=== PATIENT | female | born 1995 | race Caucasian/White ===

== ENCOUNTER 2017-03-09 13:47 | Emergency (ER) | payer SELFPAY ==
[~2017-03-09] VITALS: Ht 165.1 cm; Wt 99.9 kg
[2017-03-09 13:55] VITALS: BP 151/83; PULSE 111; TEMP 36.6; O2SAT 100; Ht 165.1 cm; Wt 99.9 kg
--- NOTE | 2017-03-09 16:56 | EMERGENCY ROOM VISIT NOTE ---
History First contact with patient: 14:00 Chief Complaint: TEST REQUEST Stated Complaint: POSSIBLY History of Present Illness The patient is a 22 year old female who presents to the Emergency Room with complaints of possible . Patient recently discontinued her control and is actively trying to become . She has had irregular menses since stopping control, and states her last period was 5 weeks ago. She did take a home test which was negative. She does not have other complaints. Review of Systems More than 6 systems were reviewed and otherwise negative with the exception of history of present illness. Past Medical/Surgical History No chronic medical disease Family History No pertinent family history Social History Smoking Status: Never Smoker Housing Status: lives with significant other Current/Historical Medications No Active Prescriptions or Reported Meds Physical Exam Vital Signs Date Time Temp Pulse Resp B/P (MAP) Pulse Ox O2 Delivery O2 Flow Rate FiO2 03/09/17 13:55 36.6 111 18 151/83 100 Room Air Pain Rating (0-10): 0 Physical Exam VITALS: Vitals are noted on the nurse's note and reviewed by myself. Vital signs stable. GENERAL: Well-developed, well-nourished, white female, who is in no acute distress and resting comfortably. Patient is cooperative with the examination. HEART: Regular rate and rhythm without murmurs gallops or rubs. LUNGS: Clear to auscultation bilaterally without wheezes, rales or rhonchi. No retractions or accessory muscle use. ABDOMEN: Positive normal bowel sounds x 4. Soft, nontender, without masses or organomegaly. No guarding or rebound tenderness. Medical Decision & Procedures Laboratory Results Test 03/09/17 14:05 Urine Test NEG (NEG) ED Course Physical exam and history were performed. Nursing notes, EMR, and Medication List were personally reviewed. Patient appears to have concern for as her last menstrual period was 5 weeks ago. Urine was collected and urine screen was negative. I recommend the patient follow with INVOICE CONTROL CLERK for further needs regarding . She was certainly invited back to the ER with any new, worsening, or concerning symptoms. The chart was completed utilizing [employer] Voice Recognition Software. Grammatical errors, random word insertions, pronoun errors, and incomplete sentences are an occasional consequence of this system due to software limitations, ambient noise, and hardware issues. Any formal questions or concerns about the content, text, or information contained within the body of this dictation should be directly addressed to the provider for clarification. . Medical Decision Differential diagnosis includes, but is not limited to: Irregular menses, , and others Impression Primary Impression: test negative Departure Information Dispostion Home / Self-Care Condition GOOD Prescriptions No Active Prescriptions or Reported Meds Forms HOME CARE DOCUMENTATION FORM, IMPORTANT VISIT INFORMATION Patient Instructions My [facility] Additional Instructions You were seen and evaluated today on an emergency basis only. This is not a substitute for, or an effort to provide, complete comprehensive medical care. It is not possible to recognize and treat all injuries or illnesses in a single emergency department visit. For this reason it is recommended that you followup with your INVOICE CONTROL CLERK if you continue to have irregular periods. They may also be able to help you with fertility if this is your goal. You are welcome to return to the emergency department anytime with new, worsening, or concerning symptoms.
== END 2017-03-09 14:20 | disposition home or self-care (01) ==
LOC: C.EDB 13:50 → C.EDD 14:20
DX: Z32.02 Encounter for pregnancy test, result negative (principal)

== ENCOUNTER → 2017-05-25 | Outpatient (CLI) | payer OTHER ==
--- NOTE | 2017-05-25 16:16 | DIAGNOSTIC IMAGING REPORT ---
L-SPINE MIN 4 VIEWS ROUTINE, SI JOINTS 3 OR MORE VIEWS HISTORY: 22 years-old Female RT HIP PAIN acute right-sided hip and lower back pain COMPARISON: None available TECHNIQUE: 5 views of the lumbar spine with 3 views of the SI joints FINDINGS: LUMBAR SPINE: There are 6 nonrib-bearing lumbar-type vertebral segments. No evidence of spondylolysis or spondylolisthesis. No acute fracture, subluxation or significant degenerative changes. SI JOINTS: No acute fracture, subluxation or significant degenerative changes or erosions to suggest sacroiliitis. IMPRESSION: No acute bony abnormality identified involving the lumbar spine or SI joints. The above report was generated using voice recognition software. It may contain grammatical, syntax or spelling errors. Electronically signed by: Basim Zaragoza M.D. 05/25/2017 4:15 PM Dictated Date/Time: 05/25/2017 4:13 PM
== END | disposition home or self-care (01) ==
LOC: C.RAD1850 15:14
PROVIDERS: ATTEND Physician Assistant
DX: M25.551 Pain in right hip (principal)

== ENCOUNTER 2017-06-22 16:00 | Emergency (ER) | payer OTHER ==
[~2017-06-22] VITALS: Ht 172.7 cm; Wt 100.0 kg
[2017-06-22 16:02] VITALS: TEMP 36.4; Ht 172.7 cm; Wt 100.0 kg
[2017-06-22] MEDS ORDERED: MoRPHine SULFATE 10 MG/ML CARP/VIAL IV STA (16:12)
[2017-06-22] MEDS ORDERED: KETOROLAC TROMETHAMINE 30 MG/ML VIAL IV STA (16:12)
[2017-06-22] MEDS ORDERED: ONDANSETRON INJ 2 MG/ML 2 ML VIAL IV STA (16:12)
[2017-06-22] MEDS ORDERED: TAMSULOSIN HCL 0.4 MG CAP PO ONE (16:15)
[2017-06-22 16:26] LABS: URINE APPEARANCE CLOUDY (CLEAR); URINE BILIRUBIN NEG (NEG); URINE COLOR YELLOW; URINE EPITHELIAL CELL AUTO >30 /lpf (0-5); URINE NITRITE NEG (NEG); UROBILINOGEN NEG (NEG); ZZUR CULT IF INDIC CLEAN CATCH YES
[2017-06-22 16:32] LABS: MANUAL MICROSCOPIC REQUIRED? NO; REVIEW REQ? NO
[2017-06-22 16:36] LABS: BASO % 0.1 %; BASO ABS # 0.01 K/uL (0-0.2); COMPLETE YES; EOS % 0.5 %; HEMATOCRIT 38.2 % (37-47); IG% 0.2 %; LYMPH % 14.7 %; LYMPH ABS # 1.88 K/uL (1.2-3.4); MEAN CELL VOLUME 87.2 fL (80-100); MEAN CORPUSCULAR HEMOGLOBIN 29.7 pg (25-34); MEAN PLATELET VOLUME 8.6 fL (7.4-10.4); NEUT % 78.5 %; PLATELET COUNT 320 K/uL (130-400); RED BLOOD COUNT 4.38 M/uL (4.2-5.4); WHITE BLOOD COUNT 12.75 K/uL (4.8-10.8)
[2017-06-22] MEDS ORDERED: DICL50TA3 PO (16:47)
[2017-06-22] MEDS ORDERED: METH4PAK PO (16:47)
[2017-06-22 16:53] LABS: BUN/CREATININE RATIO 12.8 (10-20); CALCIUM 8.9 mg/dl (8.5-10.1); CREATININE 0.89 mg/dl (0.60-1.20); POTASSIUM 3.5 mmol/L (3.5-5.1)
[2017-06-22] MEDS ORDERED: NITROFURANTOIN MONOHYDRATE 100 MG CAP PO STA (16:53)
--- NOTE | 2017-06-22 17:00 | DIAGNOSTIC IMAGING REPORT ---
ABDOMEN AND PELVIS CT WITHOUT CONTRAST CT DOSE: 1123.19 mGycm HISTORY: left flank pain TECHNIQUE: Multiaxial CT images of the abdomen and pelvis were performed without the use of intravenous and oral contrast according to the standard department stone protocol. A dose lowering technique was utilized adhering to the principles of ALARA. COMPARISON STUDY: None. FINDINGS: There is a 7 mm peripheral nodule seen within the lingula on image 15. There is a 3 mm calcification within the left deep pelvis which appears to represent a distal left ureteral stone. This is best seen on image 173. There is associated mild left hydroureteronephrosis. No additional renal calculi identified. No right-sided hydronephrosis. The unenhanced liver, spleen, adrenal glands, and pancreas are unremarkable. Normal gallbladder. No retroperitoneal lymphadenopathy. Bladder is decompressed and not well visualized. The ovaries are symmetric in size. No evidence for bowel obstruction. Visualized appendix is unremarkable. Mild soft tissue/fat stranding seen within the deep pelvis surrounding the uterus, ovaries, and distal sigmoid colon. There are few subcentimeter soft tissue nodules within the mesentery within the deep pelvis best seen on images 134 through 148. The largest nodule measures 8 mm. No pelvic lymphadenopathy. IMPRESSION: 1. A 3 mm calcification within the left deep pelvis consistent with a distal left ureteral stone. There is associated mild left hydroureteronephrosis. 2. Mild soft tissue/fat stranding seen within the deep pelvis surrounding the uterus, ovaries, distal sigmoid colon. No associated bowel wall thickening. There are also a few subcentimeter soft tissue nodules within the mesentery of the deep pelvis as described above. These findings are nonspecific but could represent endometriosis given the patient's age. An infectious/inflammatory process or occult gynecologic malignancy could also result in a similar appearance. Therefore, follow-up nonemergent gynecologic consultation is recommended. In addition, a 1 month abdomen and pelvis CT follow is recommended to ensure stability/resolution. 3. An indeterminate 7 mm nodule within the lingula. This also requires one month CT follow-up to ensure stability/resolution. This can be reassessed on the follow-up abdomen and pelvis CT. Electronically signed by: John Montague M.D. 06/22/2017 4:59 PM Dictated Date/Time: 06/22/2017 4:47 PM
[2017-06-22] MEDS ORDERED: TAMS0.4C38 PO (17:15)
[2017-06-22] MEDS ORDERED: NITR-5 PO (17:15)
[2017-06-22] MEDS ORDERED: ONDA4TAB10 SL (17:15)
[2017-06-22] MEDS ORDERED: OXYC1TAB3 PO (17:15)
--- NOTE | 2017-06-22 17:18 | EMERGENCY ROOM VISIT NOTE ---
History First contact with patient: 16:08 Chief Complaint: FLANK PAIN Stated Complaint: LOTS OF PAIN LT SIDE OF BACK AND VOMITING History of Present Illness The patient is a 22 year old female who presents to the Emergency Room with complaints of left flank pain which started this morning. The patient states it starts in the back and radiates around to her abdomen. The patient admits to associated nausea and vomiting but denies any fever. The patient states she started with some urinary urgency last night but denies any hematuria, dysuria or frequency. The patient denies . The patient admits that she had a kidney stone one year ago. She didn't need noted that she has had it. Review of Systems 10 system review was performed and was negative unless stated otherwise history of present illness. Past Medical/Surgical History Kidney stone Social History Smoking Status: Never Smoker Alcohol Use: none Drug Use: none Marital Status: Housing Status: lives with family Current/Historical Medications Scheduled Diclofenac (Voltaren), 50 MG PO BID Methylprednisolone (Medrol Dosepak), 1 PKT PO UD Physical Exam Vital Signs Date Time Temp Pulse Resp B/P (MAP) Pulse Ox O2 Delivery O2 Flow Rate FiO2 06/22/17 16:50 85 16 124/72 99 Room Air 06/22/17 16:02 36.4 121 16 154/93 100 Room Air Physical Exam GENERAL: 22-year-old white female appears uncomfortable secondary to flank pain. MENTAL Status: Alert and oriented 3. MOUTH: Mucosa is moist NECK: Supple, no lymphadenopathy noted. No carotid bruits noted. LUNGS: Clear auscultation without wheezes rales or rhonchi. CARDIAC: Regular rate and rhythm without murmur. Pulses is full and equal throughout. BACK: No CVA tenderness noted. ABDOMEN: Positive bowel sounds all 4 quadrants. Soft, tenderness to palpation in the left flank area otherwise nontender to palpation without organomegaly or masses. EXTREMITIES: No cyanosis or edema noted. Medical Decision & Procedures ER Provider Diagnostic Interpretation: ABDOMEN AND PELVIS CT WITHOUT CONTRAST CT DOSE: 1123.19 mGycm HISTORY: left flank pain TECHNIQUE: Multiaxial CT images of the abdomen and pelvis were performed without the use of intravenous and oral contrast according to the standard department stone protocol. A dose lowering technique was utilized adhering to the principles of ALA. COMPARISON STUDY: None. FINDINGS: There is a 7 mm peripheral nodule seen within the lingula on image 15. There is a 3 mm calcification within the left deep pelvis which appears to represent a distal left ureteral stone. This is best seen on image 173. There is associated mild left hydroureteronephrosis. No additional renal calculi identified. No right-sided hydronephrosis. The unenhanced liver, spleen, adrenal glands, and pancreas are unremarkable. Normal gallbladder. No retroperitoneal lymphadenopathy. Bladder is decompressed and not well visualized. The ovaries are symmetric in size. No evidence for bowel obstruction. Visualized appendix is unremarkable. Mild soft tissue/fat stranding seen within the deep pelvis surrounding the uterus, ovaries, and distal sigmoid colon. There are few subcentimeter soft tissue nodules within the mesentery within the deep pelvis best seen on images 134 through 148. The largest nodule measures 8 mm. No pelvic lymphadenopathy. IMPRESSION: 1. A 3 mm calcification within the left deep pelvis consistent with a distal left ureteral stone. There is associated mild left hydroureteronephrosis. 2. Mild soft tissue/fat stranding seen within the deep pelvis surrounding the uterus, ovaries, distal sigmoid colon. No associated bowel wall thickening. There are also a few subcentimeter soft tissue nodules within the mesentery of the deep pelvis as described above. These findings are nonspecific but could represent endometriosis given the patient's age. An infectious/inflammatory process or occult gynecologic malignancy could also result in a similar appearance. Therefore, follow-up nonemergent gynecologic consultation is recommended. In addition, a 1 month abdomen and pelvis CT follow is recommended to ensure stability/resolution. 3. An indeterminate 7 mm nodule within the lingula. This also requires one month CT follow-up to ensure stability/resolution. This can be reassessed on the follow-up abdomen and pelvis CT. Electronically signed by: John Montague M.D. 06/22/2017 4:59 PM Dictated Date/Time: 06/22/2017 4:47 PM Laboratory Results 06/22/17 16:18 Red Blood Count 4.38, Mean Corpuscular Volume 87.2, Mean Corpuscular Hemoglobin 29.7, Mean Corpuscular Hemoglobin Concent 34.0, Mean Platelet Volume 8.6, Neutrophils (%) (Auto) 78.5, Lymphocytes (%) (Auto) 14.7, Monocytes (%) (Auto) 6.0, Eosinophils (%) (Auto) 0.5, Basophils (%) (Auto) 0.1, Neutrophils # (Auto) 10.00, Lymphocytes # (Auto) 1.88, Monocytes # (Auto) 0.76, Eosinophils # (Auto) 0.07, Basophils # (Auto) 0.01 06/22/17 16:18 Test 06/22/17 16:10 06/22/17 16:18 Urine Color YELLOW Urine Appearance CLOUDY (CLEAR) Urine pH 5.0 (4.5-7.5) Urine Specific [place] 1.030 (1.000-1.030) Urine Protein NEG (NEG) Urine Glucose (UA) NEG (NEG) Urine Ketones TRACE (NEG) Urine Occult Blood 1+ (NEG) Urine Nitrite NEG (NEG) Urine Bilirubin NEG (NEG) Urine Urobilinogen NEG (NEG) Urine Leukocyte Esterase TRACE (NEG) Urine WBC (Auto) 10-30 /hpf (0-5) Urine RBC (Auto) 5-10 /hpf (0-4) Urine Hyaline Casts (Auto) 10-30 /lpf (0-5) Urine Epithelial Cells (Auto) >30 /lpf (0-5) Urine Bacteria (Auto) 1+ (NEG) White Blood Count 12.75 K/uL (4.8-10.8) Red Blood Count 4.38 M/uL (4.2-5.4) Hemoglobin 13.0 g/dL (12.0-16.0) Hematocrit 38.2 % (37-47) Mean Corpuscular Volume 87.2 fL (80-100) Mean Corpuscular Hemoglobin 29.7 pg (25-34) Mean Corpuscular Hemoglobin Concent 34.0 g/dl (32-36) Platelet Count 320 K/uL (130-400) Mean Platelet Volume 8.6 fL (7.4-10.4) Neutrophils (%) (Auto) 78.5 % Lymphocytes (%) (Auto) 14.7 % Monocytes (%) (Auto) 6.0 % Eosinophils (%) (Auto) 0.5 % Basophils (%) (Auto) 0.1 % Neutrophils # (Auto) 10.00 K/uL (1.4-6.5) Lymphocytes # (Auto) 1.88 K/uL (1.2-3.4) Monocytes # (Auto) 0.76 K/uL (0.11-0.59) Eosinophils # (Auto) 0.07 K/uL (0-0.5) Basophils # (Auto) 0.01 K/uL (0-0.2) RDW Standard Deviation 42.0 fL (36.4-46.3) RDW Coefficient of Variation 13.1 % (11.5-14.5) Immature Granulocyte % (Auto) 0.2 % Immature Granulocyte # (Auto) 0.03 K/uL (0.00-0.02) Anion Gap 6.0 mmol/L (3-11) Est Creatinine Clear Calc Drug Dose 124.7 ml/min Estimated GFR () 108.1 Estimated GFR (Non- 93.3 BUN/Creatinine Ratio 12.8 (10-20) Calcium Level 8.9 mg/dl (8.5-10.1) Total Bilirubin 0.3 mg/dl (0.2-1) Direct Bilirubin 0.1 mg/dl (0-0.2) Aspartate Amino Transf (AST/SGOT) 11 U/L (15-37) Alanine Aminotransferase (ALT/SGPT) 18 U/L (12-78) Alkaline Phosphatase 98 U/L (45-117) Total Protein 8.0 gm/dl (6.4-8.2) Albumin 4.1 gm/dl (3.4-5.0) Lipase 86 U/L (73-393) Medications Administered Medications (Trade) Dose Ordered Sig/Hiren Route Start Time Stop Time Status Last Admin Dose Admin Ketorolac Tromethamine (Toradol Inj) 30 mg NOW STAT IV 06/22/17 16:12 06/22/17 16:14 DC 06/22/17 16:18 30 MG Ondansetron HCl (Zofran Inj) 4 mg NOW STAT IV 06/22/17 16:12 06/22/17 16:14 DC 06/22/17 16:18 4 MG Morphine Sulfate (MoRPHine SULFATE INJ) 6 mg NOW STAT IV 06/22/17 16:12 06/22/17 16:14 DC 06/22/17 16:19 6 MG Tamsulosin HCl (Flomax Cap) 0.4 mg NOW ONCE PO 06/22/17 16:15 06/22/17 16:16 DC 06/22/17 16:18 0.4 MG Nitrofurantoin Macrocrystals (Macrobid Cap) 100 mg NOW STAT PO 06/22/17 16:53 06/22/17 16:54 DC 06/22/17 17:01 100 MG ED Course The patient was evaluated. The patient's EMR medication list were reviewed. IV access was obtained. CBC and differential, renal profile, LFTs and lipase levels were ordered. Urinalysis was ordered. Urine dip for was ordered. The patient was given Zofran 4 mg IV, Toradol 30 mg IV, morphine 6 mg IV and Flomax 0.[address] stone study was ordered interpreted by the radiologist as above with a 3 mm calculus in the left distal ureter with mild hydro-also incidental findings of a pulmonary nodule as well as possible endometriosis. Labs are reviewed. White count was elevated 12,000. Metabolic profile was normal. Urinalysis revealed positive blood, positive leukocytes and positive bacteria therefore she was given Macrobid 100 mg by mouth while in the ER. The patient was informed of all the abnormal findings noted on her CT and was discharged home in stable condition.. Medical Decision Differential diagnoses include reflux, gastritis, gastroenteritis, pancreatitis , cholelithiasis, cholecystitis, appendicitis, mesenteric ischemia, pyelonephritis, urinary tract infection, renal colic, diverticulitis, shingles, bowel obstruction, intussusception, hernia, ovarian torsion, ruptured ovarian cyst, ectopic , . [place] Drug Monitoring Program Search Results: patient reviewed within database Medication Reconcilliation Current Medication List: was personally reviewed by tx Blood Pressure Screening Patient's blood pressure: Normal blood pressure Impression Primary Impression: Ureteral calculus, left Additional Impressions: Urinary tract infection Pulmonary nodule Endometriosis Departure Information Dispostion Home / Self-Care Condition GOOD Prescriptions Oxycodone Immediate Rel Tab (ROXICODONE IR) 5 Mg Tab 1-2 TAB PO Q4H Y for Pain, #20 TAB Prov: Noemi Chávez PA-C 06/22/17 Ondasetron Odt (ZOFRAN ODT) 4 Mg Tab 4 MG SL Q6H for Nausea, #14 TAB Prov: Noemi Chávez PA-C 06/22/17 Tamsulosin Hcl (FLOMAX) 0.4 Mg Cap 0.4 MG PO DAILY for 7 Days, #7 CAP Prov: Noemi Chávez PA-C 06/22/17 Nitrofurantoin Monohyd Macrocr (Macrobid) 100 Mg Cap 100 MG PO BID for 7 Days, #14 CAP Prov: Noemi Chávez PA-C 06/22/17 Referrals No Doctor, Assigned (PCP) Davis Velasquez M.D. Forms HOME CARE DOCUMENTATION FORM, IMPORTANT VISIT INFORMATION Patient Instructions ED UTI Cystitis Female, Kidney Stones - [facility], [facility] Additional Instructions Push fluids. Strain all urine. Take Macrobid as directed. Ibuprofen 600 mg every 6 hours with food for pain. Take OxyIR as needed for more severe pain. Do not drive while taking the OxyIR. Take Zofran as needed for nausea. Appointment with gynecology as soon as possible for evaluation of possible endometriosis. Follow-up with your family doctor within the next month concerning the pulmonary nodule. If you experience any severe abdominal pain, uncontrolled nausea vomiting, high fevers return to the ER immediately. If you do not pass the stone in 3-[address] Velasquez. Problem Qualifiers Additional Impressions: Urinary tract infection Urinary tract infection type: acute cystitis Hematuria presence: with hematuria Qualified Codes: N30.01 - Acute cystitis with hematuria
[2017-06-22 17:33] VITALS: BP 130/90; PULSE 80; O2SAT 98
== END 2017-06-22 17:44 | disposition home or self-care (01) ==
LOC: C.EDB 16:01 → C.EDA 17:44
DX: N13.2 Hydronephrosis with renal and ureteral calculous obstruction (principal); N39.0 Urinary tract infection, site not specified; R91.1 Solitary pulmonary nodule; N80.9 Endometriosis, unspecified

== ENCOUNTER 2017-06-29 09:51 | Emergency (ER) | payer OTHER ==
[~2017-06-29] VITALS: Ht 165.1 cm; Wt 98.9 kg
[~2017-06-29 09:51] MED LIST: DICL50TA3 PO; METH4PAK PO; NITR-5 PO; ONDA4TAB10 SL; OXYC1TAB3 PO; TAMS0.4C38 PO
[2017-06-29 09:56] VITALS: TEMP 36.5; Ht 165.1 cm; Wt 98.9 kg
--- NOTE | 2017-06-29 10:36 | EMERGENCY ROOM VISIT NOTE ---
History Report prepared by Yoselin: Daly Jay Under the Supervision of: Dr. Jomar Nunez M.D. First contact with patient: 10:00 Chief Complaint: KIDNEY STONE Stated Complaint: TACHY,REFERRED,HERE W STONE LAST WEEK History of Present Illness The patient is a 22 year old white female with a past medical history of kidney stones, endometriosis, migraines who presents to the ED with a cc of persistent headaches beginning several days ago. Positive dizzy, nausea, vomiting, tachycardia, photophobia. Negative flank pain. The patient reports that she was recently seen in the emergency department for a kidney stone. She states that she saw her orthopedic doctor today and told him the symptoms she was experiencing and he referred her to the emergency department for further work up. The patient states that she has a history of migraines, but stats that this feels different, noting that her typical migraine is located in her occipital part of her head, where today it is localized to her frontal area. She describes her discomfort as a sharp pain. The patient denies any recent travel. She denies any tobacco or alcohol use. Source of History: patient Onset: sevreal days ago Position: head Quality: ache, sharp Timing: other (persistent) Associated Symptoms: + nausea, + vomiting Note: Associated Symptoms: dizzy, tachycardia, photophobia Review of Systems See HPI for pertinent positives and negatives. A total of ten systems were reviewed and were otherwise negative. Past Medical & Surgical Medical Problems: (1) Kidney stone Family History Cancer Diabetes mellitus Heart disease Hypertension Kidney disease Kidney stones Social History Smoking Status: Never Smoker Smokeless Tobacco Use: No Alcohol Use: none Drug Use: none Marital Status: Housing Status: lives with family Occupation Status: employed Current/Historical Medications Scheduled Ciprofloxacin Hcl (Cipro), 500 MG PO BID Diclofenac (Voltaren), 50 MG PO BID Methylprednisolone (Medrol Dosepak), 1 PKT PO UD Nitrofurantoin Monohyd Macrocr (Macrobid), 100 MG PO BID Ondasetron Odt (Zofran Odt), 4 MG SL Q6H Ondasetron Odt (Zofran Odt), 4 MG SL Q6H Allergies Coded Allergies: No Known Allergies (Unverified , 03/09/17) Physical Exam Vital Signs Date Time Temp Pulse Resp B/P (MAP) Pulse Ox O2 Delivery O2 Flow Rate FiO2 06/29/17 11:54 89 16 124/86 99 Room Air 06/29/17 09:56 36.5 122 16 128/88 98 Room Air Physical Exam GENERAL: Awake, alert, well-appearing, NAD HENT: Normocephalic, atraumatic. EYES: Normal conjunctiva. Sclera non-icteric. NECK: Supple. No nuchal rigidity. FROM. RESPIRATORY: CTAB, no rhonchi, wheezing, crackles CARDIAC: RRR, no MRG ABDOMEN: Soft, Obese, NTND, BS+, no CVA tenderness MSK: No chest wall TTP, no LE edema NEURO: CN 2-12 intact, 5/5 upper and lower extremity strength, no dysmetria, no drift, good finger to nose, no sensory deficits. SKIN: No rash or jaundice noted. Medical Decision & Procedures Laboratory Results 06/29/17 10:55 Red Blood Count 4.77, Mean Corpuscular Volume 87.0, Mean Corpuscular Hemoglobin 30.2, Mean Corpuscular Hemoglobin Concent 34.7, Mean Platelet Volume 8.8, Neutrophils (%) (Auto) 71.6, Lymphocytes (%) (Auto) 20.3, Monocytes (%) (Auto) 6.9, Eosinophils (%) (Auto) 0.6, Basophils (%) (Auto) 0.3, Neutrophils # (Auto) 8.48, Lymphocytes # (Auto) 2.41, Monocytes # (Auto) 0.82, Eosinophils # (Auto) 0.07, Basophils # (Auto) 0.04 06/29/17 10:55 Test 06/29/17 10:55 White Blood Count 11.85 K/uL (4.8-10.8) Red Blood Count 4.77 M/uL (4.2-5.4) Hemoglobin 14.4 g/dL (12.0-16.0) Hematocrit 41.5 % (37-47) Mean Corpuscular Volume 87.0 fL (80-100) Mean Corpuscular Hemoglobin 30.2 pg (25-34) Mean Corpuscular Hemoglobin Concent 34.7 g/dl (32-36) Platelet Count 346 K/uL (130-400) Mean Platelet Volume 8.8 fL (7.4-10.4) Neutrophils (%) (Auto) 71.6 % Lymphocytes (%) (Auto) 20.3 % Monocytes (%) (Auto) 6.9 % Eosinophils (%) (Auto) 0.6 % Basophils (%) (Auto) 0.3 % Neutrophils # (Auto) 8.48 K/uL (1.4-6.5) Lymphocytes # (Auto) 2.41 K/uL (1.2-3.4) Monocytes # (Auto) 0.82 K/uL (0.11-0.59) Eosinophils # (Auto) 0.07 K/uL (0-0.5) Basophils # (Auto) 0.04 K/uL (0-0.2) RDW Standard Deviation 41.9 fL (36.4-46.3) RDW Coefficient of Variation 13.0 % (11.5-14.5) Immature Granulocyte % (Auto) 0.3 % Immature Granulocyte # (Auto) 0.03 K/uL (0.00-0.02) Urine Color YELLOW Urine Appearance CLEAR (CLEAR) Urine pH 7.5 (4.5-7.5) Urine Specific [place] 1.014 (1.000-1.030) Urine Protein NEG (NEG) Urine Glucose (UA) NEG (NEG) Urine Ketones NEG (NEG) Urine Occult Blood NEG (NEG) Urine Nitrite NEG (NEG) Urine Bilirubin NEG (NEG) Urine Urobilinogen NEG (NEG) Urine Leukocyte Esterase TRACE (NEG) Urine WBC (Auto) 10-30 /hpf (0-5) Urine RBC (Auto) 5-10 /hpf (0-4) Urine Hyaline Casts (Auto) 1-5 /lpf (0-5) Urine Epithelial Cells (Auto) >30 /lpf (0-5) Urine Bacteria (Auto) 1+ (NEG) Urine Test NEG (NEG) Anion Gap 5.0 mmol/L (3-11) Est Creatinine Clear Calc Drug Dose 135.7 ml/min Estimated GFR () 128.8 Estimated GFR (Non- 111.1 BUN/Creatinine Ratio 9.9 (10-20) Calcium Level 9.2 mg/dl (8.5-10.1) Total Bilirubin 0.5 mg/dl (0.2-1) Direct Bilirubin 0.1 mg/dl (0-0.2) Aspartate Amino Transf (AST/SGOT) 8 U/L (15-37) Alanine Aminotransferase (ALT/SGPT) 16 U/L (12-78) Alkaline Phosphatase 98 U/L (45-117) Total Protein 8.4 gm/dl (6.4-8.2) Albumin 4.1 gm/dl (3.4-5.0) Lipase 91 U/L (73-393) Laboratory results reviewed by me Medications Administered Medications (Trade) Dose Ordered Sig/Hiren Route Start Time Stop Time Status Last Admin Dose Admin Prochlorperazine Edisylate (Compazine Inj) 10 mg NOW STAT IV 06/29/17 10:46 06/29/17 10:48 DC 06/29/17 11:10 10 MG Ketorolac Tromethamine (Toradol Inj) 30 mg NOW STAT IV 06/29/17 10:46 06/29/17 10:48 DC 06/29/17 11:09 30 MG Acetaminophen (Tylenol Tab) 1,000 mg NOW STAT PO 06/29/17 10:46 06/29/17 10:48 DC 06/29/17 11:08 1,000 MG Diphenhydramine HCl (Benadryl Inj) 50 mg NOW STAT IV 06/29/17 10:46 06/29/17 10:48 DC 06/29/17 11:09 50 MG Ceftriaxone Sodium (Rocephin Inj) 1 gm NOW STAT IV 06/29/17 12:05 06/29/17 12:14 DC 06/29/17 12:27 1 GM ECG Indication: tachycardia Rate (beats per minute): 97 Rhythm: normal sinus Findings: other (normal intervals, normal axis, no STS or TWI) ED Course 1028: The patient was evaluated in room C3. A complete history and physical exam was performed. 1208: I reevaluated the patient and she is resting comfortably. I discussed the test results with her and I discussed the treatment plan. She verbalized complete understanding and agreement. She is ready to go home. Medical Decision Differential diagnosis: Etiologies such as migraine headache, meningitis, sinusitis, CO exposure, ICH, SAH, infection, tumor, headache, sinus thrombosis, arterial dissection, as well as others were entertained. The patient is a 22 year old white female with a past medical history of kidney stones, endometriosis, migraines who presents to the ED with a cc of persistent headaches beginning several days ago. Patient was seen and evaluated at the bedside. Patient did complain of some mild headache that was frontal and radiated to the back. Patient denied any trauma does not take any blood thinning medications. Patient has no vision changes. Patient did also put his mild nausea. Patient was recently seen and diagnosed with a kidney stone was given antibiotics for UTI as well. On exam patient had a normal neurologic exam and no signs of meningismus. Patient was afebrile and the patient was mildly tachycardic. Patient not complaining shortness breath or chest pains. Patient did have blood work obtained along with a urinalysis, the urine present test. She was given symptomatically treatment. Given the patient did have some mild nausea and a urine that was still concerning for infection the patient was treated with Rocephin. She was given home prescriptions of Cipro. Patient's headache and nausea had resolved. Patient was able tolerate by mouth. Patient had a white blood cell count of 11,000. Patient had normal kidney function. Patient was told to eat a bland diet and liberal fluid hydration to continue take her antibiotics other with a yogurt or probiotic and that she should at the very least take it with food. Patient was deemed suitable for outpatient follow-up and treatment.Patient was given strict follow-up, discharge, and return precautions. All questions were answered. Patient was deemed suitable for outpatient follow-up at this time. Patient agreed with the plan of care and was safely discharged home. Medication Reconcilliation Current Medication List: was personally reviewed by me Impression Primary Impression: UTI (urinary tract infection) Additional Impressions: Headache Nausea Scribe Attestation The scribe's documentation has been prepared under my direction and personally reviewed by me in its entirety. I confirm that the note above accurately reflects all work, treatment, procedures, and medical decision making performed by me. Departure Information Dispostion Home / Self-Care Prescriptions Ciprofloxacin Hcl (CIPRO) 500 Mg Tab 500 MG PO BID for 7 Days, #14 TAB Prov: Jomar Nunez M.D. 06/29/17 Ondasetron Odt (ZOFRAN ODT) 4 Mg Tab 4 MG SL Q6H for Nausea, #6 TAB Prov: Jomar Nunez M.D. 06/29/17 Referrals Sophia Sorto PA-C (PCP) Forms HOME CARE DOCUMENTATION FORM, IMPORTANT VISIT INFORMATION Patient Instructions ED Diet [place], ED UTI Cystitis Female, Headache Pain, My [facility] Additional Instructions Please return to the emergency department if you have worsening or recurrent symptoms not amenable to at-home treatment. Please call for a follow-up appointment with her primary care physician. Please take your medications as prescribed. If you have other concerns and/or complaints please feel free to also call your primary care physician's office or return the ED for further evaluation, management, and treatment. Take your medications as prescribed. You have been examined and treated today on an emergency basis only. This is not a substitute for, or an effort to provide, complete comprehensive medical care. It is impossible to recognize and treat all injuries or illnesses in a single emergency department visit. It is therefore important that you follow up closely with [facility], your PCP, and/or your specialist(s). Call as soon as possible for an appointment. Thank you for your time and consideration. I look forward to speaking with you again soon. Please don't hesitate to call us if you have any questions. Problem Qualifiers Primary Impression: UTI (urinary tract infection) Urinary tract infection type: acute cystitis Hematuria presence: without hematuria Qualified Codes: N30.00 - Acute cystitis without hematuria Additional Impressions: Headache Headache type: unspecified Headache chronicity pattern: acute headache Intractability: not intractable Qualified Codes: R51 - Headache
[2017-06-29] MEDS ORDERED: KETOROLAC TROMETHAMINE 30 MG/ML VIAL IV STA (10:46)
[2017-06-29] MEDS ORDERED: PROCHLORPERAZINE 5 MG/ML 2 ML VIAL IV STA (10:46)
[2017-06-29] MEDS ORDERED: ACETAMINOPHEN 500 MG TAB PO STA (10:46)
[2017-06-29] MEDS ORDERED: DiphenhydrAMINE HCL 50 MG/ML VIAL IV STA (10:46)
[2017-06-29 11:09] LABS: PREG INTERNAL NEGATIVE QC NEG CLEAR BACKGROUND; PREG INTERNAL POSITIVE QC POS CONTROL LINE
[2017-06-29 11:14] LABS: URINE APPEARANCE CLEAR (CLEAR); URINE BILIRUBIN NEG (NEG); URINE COLOR YELLOW; URINE EPITHELIAL CELL AUTO >30 /lpf (0-5); URINE NITRITE NEG (NEG); URINE PH 7.5 (4.5-7.5); URINE SPECIFIC GRAVITY 1.014 (1.000-1.030); UROBILINOGEN NEG (NEG)
[2017-06-29 11:15] LABS: MANUAL MICROSCOPIC REQUIRED? NO; REVIEW REQ? NO
[2017-06-29 11:25] LABS: BASO % 0.3 %; BASO ABS # 0.04 K/uL (0-0.2); COMPLETE YES; EOS % 0.6 %; HEMATOCRIT 41.5 % (37-47); IG% 0.3 %; LYMPH % 20.3 %; LYMPH ABS # 2.41 K/uL (1.2-3.4); MEAN CORPUSCULAR HEMOGLOBIN 30.2 pg (25-34); MEAN CORPUSCULAR HGB CONC 34.7 g/dl (32-36); MEAN PLATELET VOLUME 8.8 fL (7.4-10.4); MONO % 6.9 %; NEUT % 71.6 %; PLATELET COUNT 346 K/uL (130-400); RED BLOOD COUNT 4.77 M/uL (4.2-5.4); WHITE BLOOD COUNT 11.85 K/uL (4.8-10.8)
[2017-06-29 11:40] LABS: BUN/CREATININE RATIO 9.9 (10-20); CALCIUM 9.2 mg/dl (8.5-10.1); CREATININE 0.77 mg/dl (0.60-1.20)
[2017-06-29] MEDS ORDERED: CEFTRIAXONE SOD INJ 1 GM ADDVIAL IV STA (12:05)
[2017-06-29] MEDS ORDERED: ONDA4TAB10 SL (12:44)
[2017-06-29] MEDS ORDERED: CIPR-255 PO (12:44)
[2017-06-29 13:10] VITALS: BP 134/99; PULSE 100; O2SAT 99
== END 2017-06-29 13:24 | disposition home or self-care (01) ==
LOC: C.EDB 09:53 → C.EDC 13:24
DX: N30.00 Acute cystitis without hematuria (principal); R51 Headache; Z83.3 Family history of diabetes mellitus; Z82.49 Family history of ischemic heart disease and other diseases of the circulatory system

== ENCOUNTER → 2017-08-07 | Outpatient (CLI) | payer OTHER ==
[~2017-08-07] MED LIST changes: +CIPR-255 PO; -NITR-5 PO; -OXYC1TAB3 PO; -TAMS0.4C38 PO
--- NOTE | 2017-08-07 10:11 | DIAGNOSTIC IMAGING REPORT ---
ABD/PELVIS NO IV OR ORAL CONT CLINICAL HISTORY: 22 years-old Female presenting with R91.1, 7 mm lingula nodule, distal left ureteral calculus, possible endometriosis versus pelvic inflammatory disease. TECHNIQUE: Multidetector CT of the abdomen and pelvis was performed without the use of intravenous contrast. IV contrast: None. A dose lowering technique was used consistent with the principles of ALARA (as low as reasonably achievable). COMPARISON: 06/22/2017. CT DOSE (mGy.cm): The estimated cumulative dose is 836.27 mGy.cm. FINDINGS: Tariff Compiling Clerk topogram: Unremarkable. Lung bases: Solid peripheral/subpleural 7 mm nodule in the lingula is unchanged from prior. No new infiltrate at the lung bases. Normal heart size. No pericardial or pleural effusion. Liver: Normal morphology. Normal density. Biliary: No gross biliary ductal dilatation allowing for noncontrast technique. Normal gallbladder. Pancreas: Normal noncontrast appearance. Spleen: Normal noncontrast appearance. Adrenal glands: Normal noncontrast appearance. Kidneys and ureters: Interval resolution of left hydronephrosis and left hydroureter. The previously noted calculus at the left ureterovesical junction is no longer present consistent with passage. No renal calculi. Normal noncontrast appearance of the kidneys and ureters. Bladder: Mild circumferential bladder wall thickening suggested allowing for underdistention. Pelvic organs: Fascial thickening in the pelvis again noted with suggestion of tethering of the sigmoid colon. Evaluation of the pelvic viscera is limited without intravenous contrast. Within this limitation, otherwise normal noncontrast appearance of the uterus and ovaries Bowel: The sigmoid colon mesentery appears somewhat tethered. No bowel obstruction results. The appendix is normal. Peritoneal cavity: Trace free fluid in the pelvis. Lymph nodes: No gross lymphadenopathy allowing for noncontrast technique. Vasculature: Normal noncontrast appearance. Abdominal wall: Normal. Musculoskeletal: Normal. IMPRESSION: 1. Interval passage of the distal left ureteral calculus and resolution of left hydroureteronephrosis. No new ureteral calculi. No renal calculi. 2. Mild circumferential of bladder wall thickening could suggest cystitis. Correlate with urinalysis. 3. Fascial thickening in the pelvis with possible tethering of the sigmoid colon. This again suggest chronic inflammation most likely in the setting of endometriosis although pelvic inflammatory disease could appear similarly. Correlate clinically. Grossly normal noncontrast appearance of the uterus and ovaries. If there is clinical concern, transvaginal pelvic ultrasound would better assess the pelvic viscera. 4. Stable subcentimeter solid pulmonary nodule in the lingula. Electronically signed by: Waldemar Phan M.D. 08/07/2017 10:10 AM Dictated Date/Time: 08/07/2017 10:01 AM
== END | disposition home or self-care (01) ==
LOC: C.CTS 09:40
PROVIDERS: ATTEND Physician Assistant
DX: R91.1 Solitary pulmonary nodule (principal); R93.41 Abnormal radiologic findings on diagnostic imaging of renal pelvis, ureter, or bladder; R93.8 Abnormal findings on diagnostic imaging of other specified body structures

== ENCOUNTER → 2017-08-17 | Outpatient (CLI) | payer OTHER | END | disposition home or self-care (01) | LOC: C.LAB1850 11:51 | PROVIDERS: ATTEND Nurse Practitioner Adult Health | DX: Z00.00 Encounter for general adult medical examination without abnormal findings (principal) ==

== ENCOUNTER → 2017-11-30 | Outpatient (CLI) | payer OTHER ==
[2017-11-30 09:38] LABS: BASO % 0.3 %; BASO ABS # 0.02 K/uL (0-0.2); EOS % 1.8 %; EOS ABS # 0.13 K/uL (0-0.5); HEMATOCRIT 40.8 % (37-47); HEMOGLOBIN 13.9 g/dL (12.0-16.0); IG# 0.02 K/uL (0.00-0.02); LYMPH ABS # 2.12 K/uL (1.2-3.4); MEAN CELL VOLUME 86.4 fL (80-100); MEAN CORPUSCULAR HEMOGLOBIN 29.4 pg (25-34); MEAN CORPUSCULAR HGB CONC 34.1 g/dl (32-36); MEAN PLATELET VOLUME 8.7 fL (7.4-10.4); MONO % 7.1 %; NEUT % 60.5 %; NEUT ABS # 4.27 K/uL (1.4-6.5); PLATELET COUNT 311 K/uL (130-400); RED CELL DISTRIBUTION WIDTH SD 41.5 fL (36.4-46.3); WHITE BLOOD COUNT 7.06 K/uL (4.8-10.8)
[2017-11-30 10:59] LABS: ALBUMIN 3.8 gm/dl (3.4-5.0); ALKALINE PHOSPHATASE 92 U/L (45-117); ALT/SGPT 17 U/L (12-78); AST/SGOT 10 U/L (15-37); BLOOD UREA NITROGEN 5 mg/dl (7-18); CALCIUM 8.8 mg/dl (8.5-10.1); CARBON DIOXIDE 27 mmol/L (21-32); CHOLESTEROL 115 mg/dl (0-200); CREATININE 0.84 mg/dl (0.60-1.20); GLUCOSE 84 mg/dl (70-99); LDL CHOLESTEROL CALCULATED 53 mg/dl; POTASSIUM 3.6 mmol/L (3.5-5.1); SODIUM 139 mmol/L (136-145); TOTAL PROTEIN 7.8 gm/dl (6.4-8.2)
== END | disposition home or self-care (01) ==
LOC: C.LAB1850 08:48
PROVIDERS: ATTEND Nurse Practitioner Adult Health
DX: N92.6 Irregular menstruation, unspecified (principal); I63.9 Cerebral infarction, unspecified; R42 Dizziness and giddiness; Z82.49 Family history of ischemic heart disease and other diseases of the circulatory system; Z83.3 Family history of diabetes mellitus; Z82.3 Family history of stroke